=== PATIENT | male | born 1965 | race Caucasian/White ===

== ENCOUNTER 2019-03-28 19:21 | Emergency (ER) | payer SELFPAY ==
[~2019-03-28] VITALS: Ht 180.3 cm; Wt 80.0 kg
[2019-03-28] MEDS ORDERED: ONDANSETRON HCL 4MG/2ML INJ IV STA (20:31)
[2019-03-28] MEDS ORDERED: SODIUM CHLORIDE 0.9% 1,000 ML IV ONE (20:31)
[2019-03-28 21:10] LABS: BASOPHILS % 0.3 % (0.0-2.0); EOSINOPHILS % 0.6 % (0.0-5.0); HEMOGLOBIN. 12.5 g/dL (14.0-18.0); LYMPHOCYTES % 35.5 % (20.0-50.0); MEAN CORPUSCULAR HEMOGLOBIN 30.7 pg (28.0-32.0); MEAN CORPUSCULAR VOLUME 93.2 fL (80.0-94.0); MEAN PLATELET VOLUME 7.4 fl (7.4-10.4); MONOCYTES % 8.6 % (2.0-8.0); PLATELET 323 x1000/uL (130-400); RED BLOOD CELL COUNT 4.08 mill/uL (4.7-6.1)
[2019-03-28 21:14] LABS: CHLORIDE 113 mEq/L (98-107)
[2019-03-28 21:37] LABS: ETHANOL BLOOD 475 mg/dL
[2019-03-28 23:24] LABS: *BENZODIAZEPINES SCREEN URINE NEGATIVE (NEGATIVE); *COCAINE SCREEN URINE NEGATIVE (NEGATIVE); OPIATES URINE SCREEN NEGATIVE (NEGATIVE); PHENCYCLIDINE URINE SCREEN NEGATIVE (NEGATIVE)
[2019-03-28 23:25] LABS: *AMPHETAMINES SCREEN URINE NEGATIVE (NEGATIVE); METHADONE URINE SCREEN NEGATIVE (NEGATIVE)
[2019-03-28 23:27] LABS: *BARBITURATES SCREEN URINE NEGATIVE (NEGATIVE)
[2019-03-28 23:31] LABS: CANNABINOID URINE SCREEN NEGATIVE (NEGATIVE)
[2019-03-29 05:21] VITALS: BP 98/59
[2019-03-29] MEDS ORDERED: TOPUD PO (22:45)
== END 2019-03-29 05:37 | disposition home or self-care (01) ==
LOC: EDBD → ER 19:21
DX: G92 Toxic encephalopathy (principal); T51.0X1A Toxic effect of ethanol, accidental (unintentional), initial encounter; F10.129 Alcohol abuse with intoxication, unspecified; Y90.8 Blood alcohol level of 240 mg/100 ml or more; Z59.0 Homelessness; Z79.899 Other long term (current) drug therapy
CPT/HCPCS: 36415; 80053; 80305; 80320; 83690; 85025; 93005; 96361; 96374; 99284; J2405; J7030; G0480

== ENCOUNTER 2019-03-29 10:17 | Inpatient (IN) | payer SELFPAY ==
[~2019-03-29] VITALS: Ht 162.6 cm; Wt 64.0 kg
[2019-03-29] MEDS ORDERED: SODIUM CHLORIDE 0.9% 1,000 ML IV ONE ×2 (10:51→13:09)
[2019-03-29 11:25] LABS: CHLORIDE 112 mEq/L (98-107)
[2019-03-29 11:27] LABS: BASOPHILS % 0.4 % (0.0-2.0); EOSINOPHILS % 0.4 % (0.0-5.0); HEMATOCRIT. 35.5 % (42.0-52.0); HEMOGLOBIN. 11.7 g/dL (14.0-18.0); LYMPHOCYTES % 22.4 % (20.0-50.0); MEAN CORPUSCULAR HEMOGLOBIN 30.5 pg (28.0-32.0); MEAN PLATELET VOLUME 7.1 fl (7.4-10.4); MONOCYTES % 10.6 % (2.0-8.0); NEUTROPHILS % 66.2 % (40.0-76.0); PLATELET 346 x1000/uL (130-400); RED BLOOD CELL COUNT 3.82 mill/uL (4.7-6.1); RED CELL DISTRIBUTION WIDTH 16.9 % (11.6-14.6)
[2019-03-29 11:44] LABS: ETHANOL BLOOD 511 mg/dL
[2019-03-29] MEDS ORDERED: DOCUSATE SODIUM 100MG CAPSULE PO PRN (18:00)
[2019-03-29] MEDS ORDERED: GUAIFENESIN 200MG/10ML SUGAR FREE UDC PO PRN (18:00)
[2019-03-29] MEDS ORDERED: NA PHOS,M-B/NA PHOS,DI-BA ENEMA 118ML PR PRN (18:00)
[2019-03-29] MEDS ORDERED: IPRATROPIUM/ALBUTEROL 0.5-3(2.5)MG/3ML NEB HHN PRN (18:00)
[2019-03-29] MEDS ORDERED: HYDROCODONE/ACETAMINOPHEN 10/325MG TABLET PO PRN (18:00)
[2019-03-29] MEDS ORDERED: MAGNESIUM/ALUMINUM HYDROXIDE/SIMETHICONE 30ML UDC PO PRN (18:00)
[2019-03-29] MEDS ORDERED: MORPHINE SULFATE 2 MG/ML CPJ (NOT FOR IM USE) IV PRN (18:00)
[2019-03-29] MEDS ORDERED: ACETAMINOPHEN 325MG TABLET PO PRN (18:00)
[2019-03-29] MEDS ORDERED: CLONIDINE 0.1MG TABLET PO PRN (18:00)
[2019-03-29] MEDS ORDERED: LORAZEPAM 2MG/ML CPJ IV PRN (18:00)
[2019-03-29] MEDS ORDERED: ONDANSETRON HCL 4MG/2ML INJ IV PRN (18:00)
[2019-03-29] MEDS ORDERED: HYDRALAZINE 20MG/ML VIAL IV PRN (18:00)
[2019-03-29] MEDS ORDERED: DIPHENHYDRAMINE 50MG/ML VIAL IV PRN (18:00)
[2019-03-29 18:31] VITALS: BP 114/73
[2019-03-29 20:00] VITALS: BP 141/74
[2019-03-29] MEDS: ENOXAPARIN 40MG/0.4ML SYR SUBCUT SCH ×2 (20:46→21:00)
[2019-03-29] MEDS: SODIUM CHLORIDE 0.9% INJ 3ML FLUSH IVF SCH (20:46)
[2019-03-29] MEDS ORDERED: MVI, ADULT NO.1 10 ML, FOLIC ACID 1 MG, THIAMINE HCL 100 MG in SODIUM CHLORIDE 0.9% 1,0... IV SCH ×4 (21:00)
[2019-03-29] MEDS ORDERED: KCL 20MEQ/100ML PREMIX 100 ML IV SCH (21:00)
[2019-03-29] MEDS ORDERED: TOPUD PO (22:45)
[2019-03-29 22:58] VITALS: BP 114/73
[2019-03-30] VITALS: BP 119/80
[2019-03-30 04:00] VITALS: BP 138/87
[2019-03-30] MEDS: SODIUM CHLORIDE 0.9% INJ 3ML FLUSH IVF SCH ×2 (05:48→21:30)
[2019-03-30] MEDS: DEXT 5%/0.45% NACL 1000ML 1,000 ML IV SCH ×2 (05:49→19:07)
[2019-03-30 07:34] LABS: BASOPHILS % 0.6 % (0.0-2.0); EOSINOPHILS % 0.8 % (0.0-5.0); HEMATOCRIT. 33.4 % (42.0-52.0); HEMOGLOBIN. 11.2 g/dL (14.0-18.0); LYMPHOCYTES % 22.3 % (20.0-50.0); MEAN CORPUSCULAR HEMOGLOBIN 30.8 pg (28.0-32.0); MEAN CORPUSCULAR VOLUME 92.2 fL (80.0-94.0); MONOCYTES % 10.5 % (2.0-8.0); NEUTROPHILS % 65.8 % (40.0-76.0); PLATELET 343 x1000/uL (130-400); RED BLOOD CELL COUNT 3.62 mill/uL (4.7-6.1); RED CELL DISTRIBUTION WIDTH 16.6 % (11.6-14.6)
[2019-03-30 07:35] LABS: CHLORIDE 112 mEq/L (98-107)
[2019-03-30 08:00] VITALS: BP 133/69
[2019-03-30 08:06] LABS: CREATINE KINASE 117 IU/L (39-308)
[2019-03-30 08:07] LABS: CREATINE KINASE MB FRACTION < 1.0 ng/mL (0.5-3.6)
[2019-03-30 12:00] VITALS: BP 163/81
[2019-03-30 16:00] VITALS: BP 139/78
[2019-03-30 20:00] VITALS: BP 123/84
[2019-03-30] MEDS: ENOXAPARIN 40MG/0.4ML SYR SUBCUT SCH (21:30)
[2019-03-30] MEDS: MVI, ADULT NO.1 10 ML, FOLIC ACID 1 MG, THIAMINE HCL 100 MG in SODIUM CHLORIDE 0.9% 1,0... IV SCH ×4 (22:47)
[2019-03-31] VITALS: BP 155/79
[2019-03-31] MEDS: DEXT 5%/0.45% NACL 1000ML 1,000 ML IV SCH ×3 (01:00→20:47)
[2019-03-31 04:00] VITALS: BP 151/76
[2019-03-31] MEDS: SODIUM CHLORIDE 0.9% INJ 3ML FLUSH IVF SCH ×3 (06:15→20:47)
[2019-03-31 08:00] VITALS: BP 164/126
[2019-03-31 12:00] VITALS: BP 142/83
[2019-03-31 16:00] VITALS: BP 138/79
[2019-03-31 20:00] VITALS: BP 139/79
[2019-03-31] MEDS: ENOXAPARIN 40MG/0.4ML SYR SUBCUT SCH (20:48)
[2019-03-31] MEDS: MVI, ADULT NO.1 10 ML, FOLIC ACID 1 MG, THIAMINE HCL 100 MG in SODIUM CHLORIDE 0.9% 1,0... IV SCH ×4 (23:07)
[2019-04-01] VITALS: BP 141/81
[2019-04-01 04:00] VITALS: BP 150/85
[2019-04-01] MEDS: SODIUM CHLORIDE 0.9% INJ 3ML FLUSH IVF SCH (06:08)
[2019-04-01] MEDS: DEXT 5%/0.45% NACL 1000ML 1,000 ML IV SCH (07:16)
[2019-04-01 08:00] VITALS: BP 143/53
[2019-04-01 12:00] VITALS: BP 138/68
[2019-04-01 16:00] VITALS: BP 151/88
== END 2019-04-01 17:42 | disposition home or self-care (01) | DRG 816 ==
LOC: ER 10:17 → EDBD 15:06 → 7WST 15:06 → CANRESERV 16:06 → ENRESERV 16:06
PROVIDERS: ADMIT Internal Medicine; ATTEND Internal Medicine
DX: T51.91XA Toxic effect of unspecified alcohol, accidental (unintentional), initial encounter (principal); G93.40 Encephalopathy, unspecified; E46 Unspecified protein-calorie malnutrition; F10.129 Alcohol abuse with intoxication, unspecified; Z68.24 Body mass index [BMI] 24.0-24.9, adult; E87.6 Hypokalemia; Y92.89 Other specified places as the place of occurrence of the external cause
CPT/HCPCS: 36415; 80320; 82550; 82553; 82962; 84484; 99285; J1650; J2060; J3411; J3480; J3490; J7030; G0480

== ENCOUNTER 2019-04-05 11:20 | Emergency (ER) | payer SELFPAY ==
[~2019-04-05] VITALS: Ht 167.6 cm; Wt 64.0 kg
[~2019-04-05 11:20] MED LIST: ACET-2178 PO
[2019-04-05] MEDS ORDERED: SODIUM CHLORIDE 0.9% 1,000 ML IV ONE (12:16)
[2019-04-05 12:48] LABS: BASOPHILS % 0.7 % (0.0-2.0); EOSINOPHILS % 0.3 % (0.0-5.0); HEMATOCRIT. 38.3 % (42.0-52.0); HEMOGLOBIN. 12.6 g/dL (14.0-18.0); LYMPHOCYTES % 18.1 % (20.0-50.0); MEAN CORPUSCULAR HEMOGLOBIN 30.3 pg (28.0-32.0); MEAN CORPUSCULAR VOLUME 92.1 fL (80.0-94.0); MONOCYTES % 5.8 % (2.0-8.0); NEUTROPHILS % 75.1 % (40.0-76.0); RED BLOOD CELL COUNT 4.16 mill/uL (4.7-6.1); RED CELL DISTRIBUTION WIDTH 16.5 % (11.6-14.6)
[2019-04-05 12:56] LABS: CHLORIDE 112 mEq/L (98-107)
[2019-04-05 13:11] LABS: ETHANOL BLOOD 476 mg/dL
[2019-04-05 13:22] LABS: PLATELET 490 x1000/uL (130-400)
[2019-04-05 18:14] VITALS: BP 122/79
== END 2019-04-05 18:20 | disposition home or self-care (01) ==
LOC: ER 11:20
DX: F10.129 Alcohol abuse with intoxication, unspecified (principal); Y90.4 Blood alcohol level of 80-99 mg/100 ml
CPT/HCPCS: 36415; 80053; 80320; 82962; 85025; 99283; J7030; G0480

== ENCOUNTER 2019-04-27 13:43 | Emergency (ER) | payer SELFPAY ==
[~2019-04-27] VITALS: Ht 167.6 cm; Wt 68.0 kg
[~2019-04-27 13:43] MED LIST changes: -ACET-2178 PO; +TOPUD PO
[2019-04-27] MEDS ORDERED: SODIUM CHLORIDE 0.9% 1,000 ML IV ONE (14:44)
[2019-04-27 15:41] LABS: BASOPHILS % 0.4 % (0.0-2.0); EOSINOPHILS % 0.8 % (0.0-5.0); HEMATOCRIT. 44.3 % (42.0-52.0); HEMOGLOBIN. 14.6 g/dL (14.0-18.0); LYMPHOCYTES % 28.7 % (20.0-50.0); MEAN CORPUSCULAR HEMOGLOBIN 29.5 pg (28.0-32.0); MEAN CORPUSCULAR VOLUME 89.7 fL (80.0-94.0); MONOCYTES % 4.4 % (2.0-8.0); NEUTROPHILS % 65.7 % (40.0-76.0); PLATELET 417 x1000/uL (130-400); RED BLOOD CELL COUNT 4.94 mill/uL (4.7-6.1); RED CELL DISTRIBUTION WIDTH 15.8 % (11.6-14.6)
[2019-04-27 15:47] LABS: CHLORIDE 112 mEq/L (98-107)
[2019-04-27 16:18] LABS: ETHANOL BLOOD 445 mg/dL
[2019-04-27 19:39] LABS: CLARITY URINE CLEAR (CLEAR); COLOR URINE YELLOW (YELLOW); KETONES URINE NEGATIVE (NEGATIVE); LEUKOCYTE ESTERASE URINE NEGATIVE (NEGATIVE); NITRITE URINE NEGATIVE (NEGATIVE); OCCULT BLOOD URINE NEGATIVE (NEGATIVE); PROTEIN URINE NEGATIVE (NEGATIVE); SPECIFIC GRAVITY URINE 1.014 (1.005-1.030); UROBILINOGEN URINE 0.2 E.U./dL (0.2-1.0)
[2019-04-27 19:55] LABS: *BARBITURATES SCREEN URINE NEGATIVE (NEGATIVE); *BENZODIAZEPINES SCREEN URINE NEGATIVE (NEGATIVE); *COCAINE SCREEN URINE NEGATIVE (NEGATIVE); METHADONE URINE SCREEN NEGATIVE (NEGATIVE)
[2019-04-27 19:56] LABS: *AMPHETAMINES SCREEN URINE NEGATIVE (NEGATIVE); CANNABINOID URINE SCREEN NEGATIVE (NEGATIVE); OPIATES URINE SCREEN NEGATIVE (NEGATIVE); PHENCYCLIDINE URINE SCREEN NEGATIVE (NEGATIVE)
[2019-04-28 00:22] VITALS: BP 131/67
== END 2019-04-28 00:32 | disposition home or self-care (01) ==
LOC: ER 13:43
DX: F10.229 Alcohol dependence with intoxication, unspecified (principal); Y90.8 Blood alcohol level of 240 mg/100 ml or more
CPT/HCPCS: 36415; 70450; 80053; 80305; 80320; 81003; 85025; 96360; 96361; 99284; J7030; G0480